=== PATIENT | male | born 1970 ===

== ENCOUNTER 2017-01-10 13:56 | Inpatient (IN) ==
--- NOTE | 2017-01-10 14:57 | General Surg History&Physical ---
Assessment and Plan - Time spent with patient Time spent with patient: Greater than 30 minutes (1) Traumatic hematoma of left thigh Status: Acute Assessment and plan: Impression: Mass of the left thigh poss due to hematoma Plan: CT scan and possible aspiration Current Visit: Yes History of Present Illness Chief complaint: mass or hematoma of the left thigh History of present illness: Mr. Marcos is a 46 year old male diabetic whom Dr. Vale referred due to concerns about persistent swelling and pain of the left thigh. He sustained trauma to the left thigh two months ago and over the past month has had increasing swelling and pain in the thigh. Dr. Vale was concerned about infection at this time. Ultasound demonstrated the area in the lower part of the left thigh but recent MRI was reported to be negative. The thigh is swollen and tender with good N-V function of the foot. Will admit for CT scan and possible drainage. Home Medications Medication Instructions Recorded Confirmed Type Sulfameth/Trimeth 400-80 Tab 1 tablet PO BID #14 tablet 12/31/16 Rx [Bactrim Tab] Allergies Allergy/AdvReac Type Severity Reaction Status Date / Time No Known Allergies Allergy Unverified 12/31/16 16:16 Medical,Surgical,& Family Hx - Medical History Cardio: History of: Hypertension - Surgical History Surgical History: noncontributory - Social History Smoking Status: Unknown if ever smoked Functional capacity: independent ambulation Exam - Constitutional General appearance: mild distress - Head Head exam: Present: normal inspection - ENT ENT exam: Present: normal exam - Neck Neck exam: Present: normal inspection - Respiratory Respiratory exam: Present: clear to auscultation bilaterally, rales - Cardiovascular Cardiovascular exam: Present: RRR - GI/Abdominal GI/Abdominal exam: Present: normal bowel sounds, soft - Extremities Exam Extremities exam: Present: other (Edema with some tenderness with fullness of the medial posterior aspect of the lower leg.) - Back Exam Back exam: Present: normal inspection - Neurological Exam Neurological exam: Present: alert, oriented X3, CN II-XII intact - Skin Skin exam: Present: normal color, warm, dry 12 point system: reviewed and no additional remarkable complaints except as stated Results - Diagnostic Findings Procedure: Ultrasound: report reviewed by me (Hematoma of the left thigh)
[2017-01-10] MEDS ORDERED: DEXTROSE 50% 25 GM/50 ML VIAL IV PRN ×2 (15:01→15:08)
[2017-01-10] MEDS ORDERED: GLUCAGON 1 MG VIAL IM PRN ×2 (15:01→15:08)
[2017-01-10] MEDS ORDERED: ACETAMINOPHEN 325 MG TABLET PO PRN (15:01)
[2017-01-10] MEDS ORDERED: ALUMINUM/MAGNES/SIMETH MAX STR 30 ML UDCUP PO PRN (15:01)
[2017-01-10] MEDS ORDERED: HYDROmorphone 2 MG/1 ML VIAL IV PRN (15:01)
[2017-01-10] MEDS ORDERED: ONDANSETRON 4 MG/2 ML VIAL IV PRN (15:01)
[2017-01-10 16:39] LABS: Basophils % 0.4 % (0.0-0.8); Eosinophils # 0.2 10*3/uL (0.0-0.87); Eosinophils % 1.7 % (0.00-10.9); Hematocrit 33.7 VOL% (42.0-52.0); Immature Granulocytes % 0.7 %; Immature Granulocytes Absolute 0.06 #; Lymphocytes % 10.8 % (21.2-54.2); Mean Corpuscular HGB Conc 35.6 GM/DL (32-36); Mean Corpuscular Hemoglobin 30 PG (27-34); Mean Corpuscular Volume 85.3 FL (87-102); Mean Platelet Volume 8.6 FL (9.6-12.0); Monocytes % 11.5 % (1.7-12.7); Neutrophils # 6.7 10*3/uL (1.4-7.4); Neutrophils % 74.9 % (38.7-73.9); Platelet Count 538 T/CUMM (130-400); Red Blood Count 3.95 MC/CUMM (3.8-5.5); Red Cell Distribution Width 11.4 % (9.3-17.3); White Blood Count 8.9 T/CUMM (4-12)
[2017-01-10] MEDS: INSULIN REGULAR 100 UNIT/ML SUBCUT SCH ×2 (16:42→21:17)
[2017-01-10 16:51] LABS: PT Patient Result 10.7 SECS; Partial Thromboplastin Time 34.9 SECS (0-40)
--- NOTE | 2017-01-10 17:06 | XRay Report ---
XR chest 2V Date: 01/10/2017 3:06 PM History: Hematoma left thigh Comparison: None Technique: PA and lateral chest Findings: The heart is normal in size. Atelectasis at the lung bases. Unremarkable mediastinum with degenerative changes. Impression: Minimal atelectasis at the lung bases. PROCEDURE INTERPRETED AT [facility] DEPARTMENT OF RADIOLOGY Final Report Signed by: Dr. Misa Aguirre
[2017-01-10 17:19] LABS: Alanine Aminotransferase 18 U/L (16-61); Albumin 2.2 G/DL (3.4-5.0); Alkaline Phosphatase 133 U/L (45-117); Aspartate Amino Transferase 15 U/L (0-37); Bilirubin,Total < 0.39 MG/DL (0.2-1.0); Blood Urea Nitrogen 18 MG/DL (7-18); Calcium 8.7 MG/DL (8.5-10.1); Glucose 154 MG/DL (74-106); Osmolality,Calculated 277.8 MOS/KG (273-304); Potassium 5.1 MMOL/L (3.5-5.1); Sodium 137 MMOL/L (136-145); Total Protein 6.6 G/DL (6.4-8.3)
[2017-01-10] MEDS: SODIUM CHLORIDE 0.45% 1,000 ML IV SCH (17:26)
[2017-01-10] MEDS: KETOROLAC 15 MG/1 ML VIAL IV SCH ×2 (17:26→21:17)
[2017-01-10] MEDS: PIPERACILLIN/TAZOBACTAM 3,375 MG in SODIUM CHLORIDE 0.9% 100 ML IV SCH (17:27)
--- NOTE | 2017-01-10 17:34 | CT Report ---
Referring physician: Dominik Lake EXAM: CT left thigh with contrast DATE: 01/10/2017 COMPARISON: None REASON: Pain and swelling in the left thigh TECHNIQUE: Axial images of the left thigh were obtained after administration of 100 cc of Omnipaque 350 IV contrast. Sagittal and coronal reformatted images were provided. Total DLP was 697.10 mGy*cm. FINDINGS:: No evidence of arterial stenosis. No fracture or dislocation. No periosteal thickening. 7 mm sclerotic findings in the left greater trochanter. Small knee joint effusion. Diffuse soft tissue edema. Inhomogeneous enhancement of the musculature especially within the edematous abductor ryne muscle. No well-circumscribed mass is identified. No abscess cavity noted. Enlarged left femoral nodes. IMPRESSION: Findings which can be seen with prominent myositis especially involving the left adductus ryne muscle. It is difficult to exclude possible developing compartment syndrome with associated soft tissue edema. Enlarged left femoral nodes with the largest measuring 22 mm in length. Small knee joint effusion. 7 mm benign bone island in the left greater trochanter. The CT exam was performed using one or more of the following dose reduction techniques: Automated exposure control and adjustment of the mA and/or kV according to patient size. PROCEDURE INTERPRETED AT [facility] DEPARTMENT OF RADIOLOGY Final Report Signed by: Dr. Misa Aguirre
[2017-01-10] MEDS: DOCUSATE SODIUM 100 MG CAPSULE PO SCH (21:17)
[2017-01-11] MEDS: PIPERACILLIN/TAZOBACTAM 3,375 MG in SODIUM CHLORIDE 0.9% 100 ML IV SCH ×4 (00:54→23:13)
[2017-01-11] MEDS: SODIUM CHLORIDE 0.45% 1,000 ML IV SCH ×4 (00:55→23:12)
[2017-01-11] MEDS: KETOROLAC 15 MG/1 ML VIAL IV SCH ×4 (04:20→20:42)
[2017-01-11 05:47] LABS: Basophils % 0.4 % (0.0-0.8); Eosinophils # 0.3 10*3/uL (0.0-0.87); Eosinophils % 4.1 % (0.00-10.9); Hematocrit 29.9 VOL% (42.0-52.0); Hemoglobin 10.4 GM/DL (14.0-18.0); Immature Granulocytes % 0.7 %; Immature Granulocytes Absolute 0.05 #; Lymphocytes # 1.2 10*3/uL (1.4-4.0); Lymphocytes % 16.1 % (21.2-54.2); Mean Corpuscular HGB Conc 34.8 GM/DL (32-36); Mean Corpuscular Hemoglobin 30 PG (27-34); Mean Corpuscular Volume 85.4 FL (87-102); Mean Platelet Volume 8.8 FL (9.6-12.0); Monocytes # 1.1 10*3/uL (0.11-0.8); Monocytes % 15.3 % (1.7-12.7); Neutrophils # 4.6 10*3/uL (1.4-7.4); Neutrophils % 63.4 % (38.7-73.9); Platelet Count 508 T/CUMM (130-400); Red Cell Distribution Width 11.6 % (9.3-17.3); White Blood Count 7.3 T/CUMM (4-12)
[2017-01-11 06:21] LABS: Calcium 8.4 MG/DL (8.5-10.1); Osmolality,Calculated 284.5 MOS/KG (273-304); Potassium 4.7 MMOL/L (3.5-5.1)
--- NOTE | 2017-01-11 07:52 | EKG Report ---
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
--- NOTE | 2017-01-11 08:09 | General Surgery Progress Note ---
Assessment and Plan - Time spent with patient Time spent with patient: Less than 30 minutes (1) Traumatic hematoma of left thigh Status: Acute Assessment and plan: 01/11/17 Left thigh swelling secondary to old trauma. CT suggests myositis rather than abscess. It does not have any characteristics of an advancing infection or compartment syndrome. He is on Zosyn and comfortable. We are awaiting Dr Hoffmann's opinion as to any additional tests that might benefit this man's diagnostic picture and his best course of treatment. Current Visit: Yes Subjective Patient reports: Present: no new complaints Exam - Constitutional Vitals: Period Temp Pulse Resp BP Sys/Cano Pulse Ox Last 24 Hr 97.9 F-98.3 F 83-91 16-18 136-158/85-99 96-99 General appearance: no acute distress - Respiratory Respiratory exam: Present: clear to auscultation bilaterally - Extremities Exam Extremities exam: Present: other (LUE without erythema; no other skin changes overnight. No fluctuance. Mass-effect is stable without unusual tenderness. No neurovascular signs. ) - Neurological Exam Neurological exam: Present: alert, oriented X3 Speech: Present: normal Results - Labs CBC & BMP: 01/11/17 05:25 01/11/17 05:25 Lab Results: I have reviewed the past 24 hour labs (No leukocytosis. CT suggests myositis with edema & lymphadenopathy, no abscess.) Quality Measures - VTE Contraindication to Pharmacological VTE Prophylaxis: High Risk of Bleeding
--- NOTE | 2017-01-11 09:39 | Infectious Disease Consult ---
Assessment and Plan (1) Myositis of left thigh Status: Acute Current Visit: Yes (2) Edema of left lower extremity Status: Acute Assessment and plan: Significant lymphedema of left lower extremity, with apparent myositis of left thigh muscles on CT scan. The patient has had no constitutional symptoms supportive of infection. I wonder if the edema is related to lymphatic obstruction may be in the pelvis. Alternatively this a condition called diabetic muscle infarction which results in painful swelling of the affected muscles and uncontrolled diabetic patients. Recommendations: 1. CT scan abdomen and pelvis to look for possible mass obstructing lymphatics on the left side 2. A1c 3. Blood cultures 2 sets 4. I would not treat with antibiotics at this time as I have low suspicion for infection Thank you very much for the consult. Will follow. Discussed with Dr. Lake. Current Visit: Yes History of Present Illness Chief complaint: Myositis History of present illness: Mr. Weaver is a 46 year old male who was well until about 2 months ago when he developed pain to the posterior aspect of the left thigh more distally. 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 The pain got steadily worse and then 2 weeks ago he started having swelling to the posterior aspect of the same thigh inferiorly. The swelling got worse and involve the entire thigh and also the leg. Patient developed worsening difficulty ambulating and so sought medical attention in the . He had an MRI done apparently showed fluid collection in the thigh suggestive of a hematoma. The patient did not tell me this but in speaking with Dr. Lake he was actually admitted to and given antibiotics for several days however there was no improvement in the swelling and so he was sent to our institution for further evaluation. The patient has not had any fever malaise or any other constitutional symptoms throughout all of this. He denies nausea vomiting diarrhea no cough shortness of breath no urinary symptoms. Does not have any significant family history. He is diabetic and admits that it is not controlled. I noticed the bruise to the medial aspect of his thigh inferiorly and he said that he bumped it on the patient differential he was moving several weeks ago. Home Medications Medication Instructions Recorded Confirmed Type Amlodipine Besylate [Amlodipine 10 mg PO BEDTIME 01/10/17 01/10/17 History Besylate] Aspirin [Ecotrin] 81 mg PO DAILY 01/10/17 01/10/17 History Carvedilol [Carvedilol] 3.125 mg PO BID 01/10/17 01/10/17 History Ergocalciferol [Drisdol] 50,000 unit PO Q7D 01/10/17 01/10/17 History Furosemide [Furosemide] 20 mg PO DAILY 01/10/17 01/10/17 History Hydralazine HCl [Hydralazine HCl] 50 mg PO Q8H 01/10/17 01/10/17 History Insulin Detemir [Levemir FlexPen] 50 units SUBCUT DAILY W/SUPPER 01/10/17 History Losartan [Cozaar] 50 mg PO DAILY 01/10/17 01/10/17 History Simvastatin [Simvastatin] 20 mg PO BEDTIME 01/10/17 01/10/17 History raNITIdine HCl [Ranitidine HCl] 150 mg PO BEDTIME 01/10/17 01/10/17 History Allergies Allergy/AdvReac Type Severity Reaction Status Date / Time No Known Allergies Allergy Unverified 12/31/16 16:16 12 point system: reviewed and no additional remarkable complaints except as stated (Per HPI) Medical,Surgical,& Family Hx - Medical History Cardio: History of: Hypertension Endocrine: History of: Diabetes Mellitus (NIDDM) - Family History Family History: Reports;: Family Cancer, Family Diabetes, Family Hypertension - Social History Smoking Status: Former smoker Frequency of Alcohol Use: Occasionally Type of Drug Use: None Infectious Disease Exam H&P - Constitutional Vitals: Vital Signs Temp Pulse Resp BP Pulse Ox 97.9 F 85 18 158/97 96 01/11/17 07:03 01/11/17 07:03 01/11/17 07:03 01/11/17 07:03 01/11/17 07:03 Intake and Output 01/10/17 01/11/17 01/11/17 23:59 07:59 15:59 Intake Total 440 / 440 1200 / 1200 Output Total 400 / 400 200 / 200 Balance 40 / 40 1000 / 1000 Intake: IV 100 / 100 1000 / 1000 Zosyn 3,375 mg In Ns 100 100 / 100 ml @ 25 mls/hr IV Q8H VICKEY Rx#:[id number] 1/2Ns 1,000 ml @ 125 mls/ 1000 / 1000 hr IV .Q8H VICKEY Rx#: [id number] Oral 340 / 340 200 / 200 Output: Urine 400 / 400 200 / 200 Other: Voiding Method Toilet Urinal Weight 72.064 kg Patient Weight 01/11/17 23:59 Weight 72.064 kg Exam: General: Patient relatively comfortable, nontoxic appearing HEENT: Mucous membranes pink and moist, anicteric acyanotic, KAYCEE, no oropharyngeal exudates Neck: Supple, no thyroid gland enlargement, no lymphadenopathy Respiratory system: Breath sounds vesicular, no crepitations or wheezes Cardiovascular: Normal S1 and S2, no murmurs appreciated Abdomen: Normal bowel sounds, soft nontender throughout, no organomegaly or mass Genitourinary: No suprapubic pain or bladder distention, clear urine from Wheeler catheter Extremities: Moderate to severe edema of the entire left lower extremity, there is no erythema of the skin, there is tenderness to the posterior aspect of the left thigh, lower half. He does not have any significant left inguinal lymphadenopathy. Skin: No rash, healing bruise to medial aspect of the left thigh inferiorly Reports - Labs CBC & BMP: 01/11/17 05:25 01/11/17 05:25 Labs: Laboratory Results - last 24 hr 01/10/17 01/10/17 01/10/17 16:18 16:31 16:31 WBC 8.9 RBC 3.95 Hgb 12.0 L Hct 33.7 L MCV 85.3 L MCH 30 MCHC 35.6 RDW 11.4 Plt Count 538 H MPV 8.6 L Neut % (Auto) 74.9 H Lymph % (Auto) 10.8 L [place] % (Auto) 11.5 Eos % (Auto) 1.7 Baso % (Auto) 0.4 Neut # (Auto) 6.7 Lymph # (Auto) 1.0 L [place] # (Auto) 1.0 H Eos # (Auto) 0.2 Baso # (Auto) 0.0 Immature Gran % 0.7 Nucleated RBC % 0.0 Immature Gran # 0.06 Nucleated RBCs # 0.00 INR 1.0 PT Patient/Control Mix 10.7 Circ Anticoag PTT 34.9 Sodium Potassium Chloride Carbon Dioxide Anion Gap BUN Creatinine GFR Calculation BUN/Creatinine Ratio Glucose POC Glucose 155 H Calculated Osmolality Calcium Total Bilirubin AST ALT Alkaline Phosphatase Total Protein Albumin Globulin Albumin/Globulin Ratio 01/10/17 01/10/17 01/11/17 16:31 20:31 05:25 WBC 7.3 RBC 3.50 L Hgb 10.4 L Hct 29.9 L MCV 85.4 L MCH 30 MCHC 34.8 RDW 11.6 Plt Count 508 H MPV 8.8 L Neut % (Auto) 63.4 Lymph % (Auto) 16.1 L [place] % (Auto) 15.3 H Eos % (Auto) 4.1 Baso % (Auto) 0.4 Neut # (Auto) 4.6 Lymph # (Auto) 1.2 L [place] # (Auto) 1.1 H Eos # (Auto) 0.3 Baso # (Auto) 0.0 Immature Gran % 0.7 Nucleated RBC % 0.0 Immature Gran # 0.05 Nucleated RBCs # 0.00 INR PT Patient/Control Mix Circ Anticoag PTT Sodium 137 Potassium 5.1 Chloride 102 Carbon Dioxide 31 Anion Gap 9.1 BUN 18 Creatinine 1.10 GFR Calculation 85 BUN/Creatinine Ratio 16.00 Glucose 154 H POC Glucose 204 H Calculated Osmolality 277.8 Calcium 8.7 Total Bilirubin < 0.39 AST 15 ALT 18 Alkaline Phosphatase 133 H Total Protein 6.6 Albumin 2.2 L Globulin 4.4 H Albumin/Globulin Ratio 0.5 L 01/11/17 01/11/17 05:25 06:51 WBC RBC Hgb Hct MCV MCH MCHC RDW Plt Count MPV Neut % (Auto) Lymph % (Auto) [place] % (Auto) Eos % (Auto) Baso % (Auto) Neut # (Auto) Lymph # (Auto) [place] # (Auto) Eos # (Auto) Baso # (Auto) Immature Gran % Nucleated RBC % Immature Gran # Nucleated RBCs # INR PT Patient/Control Mix Circ Anticoag PTT Sodium 139 Potassium 4.7 Chloride 106 Carbon Dioxide 27 Anion Gap 10.7 BUN 20 H Creatinine 1.10 GFR Calculation 85 BUN/Creatinine Ratio 18.00 Glucose 196 H POC Glucose 187 H Calculated Osmolality 284.5 Calcium 8.4 L Total Bilirubin AST ALT Alkaline Phosphatase Total Protein Albumin Globulin Albumin/Globulin Ratio - Diagnostic Findings Procedure: CT: report reviewed by me (CT findings of the left thigh reviewed with diffuse edema and myositis)
[2017-01-11] MEDS: DOCUSATE SODIUM 100 MG CAPSULE PO SCH ×2 (09:44→20:42)
[2017-01-11] MEDS: PANTOPRAZOLE 40 MG TABLET PO SCH (09:44)
[2017-01-11] MEDS: INSULIN REGULAR 100 UNIT/ML SUBCUT SCH ×4 (09:45→20:42)
--- NOTE | 2017-01-11 11:16 | CT Report ---
CT abdomen pelvis w con Indication: Possible mass obstructing lymphatics in the left pelvis Comparison: CT left leg dated January 10, 2017 Technique: Multiple axial tomographic images of the abdomen and pelvis were obtained after the administration of 100 cc Omnipaque 350 intravenous contrast. Findings: Mild dependent change of the lungs present. No worrisome focal hepatic abnormality. The gallbladder is grossly unremarkable. The pancreas is grossly unremarkable. The spleen is grossly unremarkable. The bilateral adrenal glands are grossly unremarkable. 2.8 cm left renal cyst. No evidence of hydronephrosis. The urinary bladder is incompletely distended. Prostate is somewhat prominent and demonstrates coarse calcification. There is no evidence of gastrointestinal obstruction or acute appendicitis. Moderate fecal material throughout colon may reflect constipation. Mild atherosclerotic calcifications demonstrated. Significant edema noted throughout the visualized left thigh. Bilateral pars defects at L5 with grade 1 anterolisthesis of L5 upon S1. IMPRESSION: Significant edema noted throughout the visualized left thigh. Prominent prostate. Moderate amount of fecal material throughout the colon may reflect constipation. Detailed findings as above. The CT exam was performed using one or more of the following dose reduction techniques: Automated exposure control, adjustment of the mA and/or kV according to patient size, or use of iterative reconstruction technique. PROCEDURE INTERPRETED AT [facility] DEPARTMENT OF RADIOLOGY Final Report Signed by: Dr Richmond English
[2017-01-11] MEDS: CARVEDILOL 3.125 MG TABLET PO SCH ×2 (13:56→20:42)
[2017-01-11] MEDS: LOSARTAN 50 MG TABLET PO SCH (13:56)
[2017-01-11] MEDS: amLODIPine 10 MG TABLET PO SCH (20:42)
[2017-01-12] MEDS: KETOROLAC 15 MG/1 ML VIAL IV SCH ×4 (02:32→21:08)
[2017-01-12] MEDS: SODIUM CHLORIDE 0.45% 1,000 ML IV SCH ×2 (07:45→15:40)
[2017-01-12] MEDS: PANTOPRAZOLE 40 MG TABLET PO SCH (08:08)
[2017-01-12] MEDS: LOSARTAN 50 MG TABLET PO SCH (08:09)
[2017-01-12] MEDS: DOCUSATE SODIUM 100 MG CAPSULE PO SCH ×2 (08:09→20:52)
[2017-01-12] MEDS: CARVEDILOL 3.125 MG TABLET PO SCH ×2 (08:10→20:52)
[2017-01-12] MEDS: INSULIN REGULAR 100 UNIT/ML SUBCUT SCH ×4 (08:10→20:53)
[2017-01-12] MEDS: PIPERACILLIN/TAZOBACTAM 3,375 MG in SODIUM CHLORIDE 0.9% 100 ML IV SCH ×3 (08:12→22:55)
--- NOTE | 2017-01-12 09:02 | General Surgery Progress Note ---
Assessment and Plan - Time spent with patient Time spent with patient: Less than 30 minutes (1) Traumatic hematoma of left thigh Status: Acute Assessment and plan: 01/11/17 Left thigh swelling secondary to old trauma. CT suggests myositis rather than abscess. It does not have any characteristics of an advancing infection or compartment syndrome. He is on Zosyn and comfortable. We are awaiting Dr Hoffmann's opinion as to any additional tests that might benefit this man's diagnostic picture and his best course of treatment. 01/12/2017. Thigh appears to be slightly improved symptomatically. There does not appear to be any advancing infection, and Dr. Hoffmann's opinion is that this is not infectious process. We will await her reassessment this morning, but at this point it does not appear to be progressing, does not seem to be an abscess or anything that would benefit from a surgical procedure/invasion. We may complete his short course of antibiotics and plan for discharge with close follow-up and just encourage him to conservatively be active and wait to see if the area continues to resolve with just medical management of diabetes, steroids and close observation. Of note, his antihypertensives have been re- started, and his blood pressures are slowly returning to a normal range. Current Visit: Yes Subjective Patient reports: Present: pain is less, tolerating a regular diet. Absent: shortness of breath Exam - Constitutional Vitals: Period Temp Pulse Resp BP Sys/Cano Pulse Ox Last 24 Hr 97.5 F-99.1 F 81-93 18-20 130-180/80-111 96-100 General appearance: no acute distress - Extremities Exam Extremities exam: Present: other (Left thigh continues to be moderately tender on the medial aspect. There is no advancing erythema, no increased swelling, no fluctuance or stranding. He says that he believes the discomfort is slightly better.) Results - Labs CBC & BMP: 01/11/17 05:25 01/11/17 05:25 Lab Results: I have reviewed the past 24 hour labs (CT and Dr. Hoffmann's note have been reviewed and are appreciated.) Quality Measures - VTE Contraindication to Pharmacological VTE Prophylaxis: High Risk of Bleeding
--- NOTE | 2017-01-12 11:34 | Infectious Disease Progress ---
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 This is a microangiopathic complication of diabetes. Recommendations: 1. Discontinue antibiotics 2. Anti-inflammatory medication to help with the pain 3. I can see the office the patient in the office in about 2-4 weeks time to ensure that there is no need for antibiotics The muscle swelling/inflammation of diabetic muscle infarction can take up to 4 months to resolve. Current Visit: Yes Infectious Disease - PN: Subj Interval history: Patient says the swelling to the left thigh and leg is a little better today, he still without fever and other constitutional symptoms. Infectious Disease Exam (PN) - Constitutional Vitals: Temp Pulse Resp BP Pulse Ox 98.1 F 82 20 137/94 100 01/12/17 10:58 01/12/17 10:58 01/12/17 10:58 01/12/17 10:58 01/12/17 10:58 General appearance: no acute distress Exam: General appearance: no acute distress - Eye Eye exam: Present: EOMI. no icterus Pupils: Present: KAYCEE - ENT ENT exam: no oropharyhgeal exudates - Respiratory Respiratory exam: vesicular BS, no crepitations or wheezes - Cardiovascular Cardiovascular exam: regular rate and rhythm, no murmurs - GI/Abdominal GI/Abdominal exam: normal bowel sounds, soft, non-tender, no organomegaly or mass - Extremities Exam Extremities exam: Still with diffuse edema to left thigh and leg, the edema is more firm to the posterior aspect of the thigh inferiorly, no hyperemia or erythema noted - Skin Skin exam: no rash Results - Labs CBC & BMP: 01/11/17 05:25 01/11/17 05:25 Lab Results: I have reviewed the past 24 hour labs Quality Measures - VTE Contraindication to Pharmacological VTE Prophylaxis: High Risk of Bleeding
[2017-01-12] MEDS: amLODIPine 10 MG TABLET PO SCH (20:52)
[2017-01-13] MEDS: SODIUM CHLORIDE 0.45% 1,000 ML IV SCH ×2 (01:32→06:36)
[2017-01-13] MEDS: KETOROLAC 15 MG/1 ML VIAL IV SCH ×2 (02:51→09:07)
--- NOTE | 2017-01-13 08:37 | Discharge Summary ---
Hospital Course - Hospital Course Hospital Course: Discharge summary 01/13/2017. Diagnosis 1. Swelling of the left thigh with myositis and groin lymphadenopathy in a patient with history of remote trauma. Differential includes spontaneous diabetic muscle infarction secondary to microangiopathy of diabetes 2. Diabetes mellitus type 2, uncontrolled 3. Hypertension, poorly controlled and with questionable degree of compliance Brief summary-this 46-year-old male was referred by Dr. Vale [facility] after he presented with worsening left thigh pain that had become intractable and had made it difficult for him to ambulate at home and function at his job. It was felt that he might have an abscess in the area although he had no open wound. He originally was seen in the clinic with swelling and tenderness and an ultrasound was obtained of the left thigh, which showed soft tissue swelling. There was subtle redness in the area, and she became concerned about infection. He was placed on antibiotics and Dr. Lake was consulted. There was some swelling of the thigh, and it was difficult to determine whether there was an infectious process or the swelling was secondary to an injury he sustained approximately 2 months prior. He was seen in our office, and Dr. Lake did feel that a CT was needed, along with a high degree of suspicion that this area was an abscess. He was admitted, placed on IV Zosyn, and labs & CT of the left thigh was obtained. Infectious diseases consult was also ordered his labs were not unusually abnormal, with no elevated WBC, and the CT did not show a deep abscess. Rather there was soft tissue edema and enlarged left femoral lymph nodes, but the area of the left thigh showed only myositis. ESR was 117, CRP 7.82, alkaline phosphatase 133, and creatine kinase 380. His hemoglobin A1c was elevated at 9.2, and his glucoses throughout admission were in the 150-[address] Majo Hoffmann was consulted, and she felt that the area did not show any evidence of infection as well. She felt that this represents diabetic muscle infarction, a micro-angiopathy complication of type 2 diabetes. She does not recommend antibiotics for this area, and in fact feels that antibiotics may be detrimental rather than helpful in this situation. Blood cultures have been negative. He has remained hypertensive though asymptomatic throughout the admission, but restarting his home medications have brought this into a more normal range. He has been able to ambulate with physical therapy, although he is much more stable now using a cane for assistance in ambulating. He says that symptomatically his pain is somewhat better, and his left thigh has clinically remained stable throughout the admission. There has been no evidence of advancing erythema or edema, no evidence of any ischemic change, and no neurovascular compromise. His vital signs and labs have been stable as noted above. With Dr. Loo's opinion being such that this is a microangiopathic complication of diabetes and not a true infectious process, and with him clinically being somewhat improved symptomatically with nothing to suggest an advancing infection and certainly nothing that would benefit from surgical drainage, we feel it best to continue with conservative management of this area. Of note it may be a slow process and he would be best served by conservative treatment with good overall disease management, mild anti-inflammatories, and good support of the area to prevent further injury or falls. If he fails to improve, Dr. Hoffmann does recommend that we investigate further the groin lymphadenopathy with a CT of the abdomen and pelvis. We will plan to follow him up in 2-4 weeks in our office, hopefully in conjunction with her 2-4 week follow-up visit. We will also recommend that he see Dr. Vale at [facility] for routine medical management in that interval. We will plan to leave him with a 4 mg Medrol Dosepak to take on discharge as well as resuming all his home medications. Will recommend just mild [id number] medications for pain, and will get him a standard cane for use at home. Physical therapy has instructed him on this use, and he seems to be much more stable and comfortable when ambulating with cane. We discussed this in detail with the patient he seems to have a good understanding of this process, the need for close follow-up and compliance , and of the need to notify us should he have changes before his scheduled appointment. - Time spent with patient Time with patient DS: Greater than 30 minutes Diagnosis - Discharge Diagnosis (1) Traumatic hematoma of left thigh Status: Acute (2) Myositis of left thigh Status: Acute (3) Diabetic muscle infarction Status: Acute (4) Diabetes type 2, uncontrolled Status: Acute Specialty Discharge - Follow Up or Referrals Follow up with: Majo Cervantes MD [Physician] - 02/01/17 9:00 am Dominik Lake MD [Physician] - (Appointment to see Dr. Lake or Brii and 2-4 weeks. Please try to schedule on the same day as Dr. Hoffmann's appointment if possible) Discharge Plan - Discharge Data Disposition: Disch To Home/Self Care Condition at Discharge: Stable Discharge Diet: diabetic diet Activity: increase activity as tolerated, other (Use cane for ambulation) Hygiene: no restrictions Weight Bearing at Discharge: weight bear as tolerated, other (Use cane for ambulation) Contact your physician if you experience:: fever over 101, Redness or swelling, Shortness of breath, pain uncontrolled by pain medications - Discharge Medications New methylPREDNISolone DOSEPAK [Medrol Dosepak] 4 mg PO DIRECTED #1 pack Continue Amlodipine Besylate 10 mg PO BEDTIME Hydralazine HCl 50 mg PO Q8H Carvedilol 3.125 mg PO BID raNITIdine HCl [Ranitidine HCl] 150 mg PO BEDTIME Simvastatin 20 mg PO BEDTIME Furosemide 20 mg PO DAILY Aspirin [Ecotrin] 81 mg PO DAILY Losartan [Cozaar] 50 mg PO DAILY Insulin Detemir [Levemir FlexPen] 50 units SUBCUT DAILY W/SUPPER Ergocalciferol [Drisdol] 50,000 unit PO Q7D - Follow Up or Referral Follow Up: Majo Cervantes MD [Physician] - 02/01/17 9:00 am - Forms/Instructions Additional Discharge Instructions: Work excuse until after his appointment with Dr Lake. Exam - Constitutional Vitals: Period Temp Pulse Resp BP Sys/Cano Pulse Ox Last 24 Hr 98.0 F-98.9 F 82-87 18-20 137-171/94-99 99-100 General appearance: normal weight, no acute distress - Head Head exam: Present: normocephalic - Eye Eye exam: Absent: nystagmus, periorbital swelling, scleral icterus Pupils: Present: normal accommodation - Neck Neck exam: Absent: lymphadenopathy - Respiratory Respiratory exam: Absent: rales, rhonchi, wheezes - Cardiovascular Cardiovascular exam: Present: regular rate and rhythm - GI/Abdominal GI/Abdominal exam: Present: soft. Absent: tenderness - Extremities Exam Extremities exam: Present: other (Left thigh without redness. Induration is stable. There is no fluctuance, no increased tenderness, no increased edema. Neurovascular function remains intact.) - Neurological Exam Neurological exam: Present: alert, oriented X3 Discharge Results Procedures and tests throughout hospitalization: Pending Orders 01/11/17 08:36 Blood Culture Stat Labs on day of discharge: Labs from last 24 hours 01/12/17 01/12/17 11:44 11:44 ESR Westergren 117 H Total Creatine Kinase 380 H C-Reactive Protein 7.82 H Preliminary micro results at discharge 01/11/17 08:36 Blood Culture - Preliminary Blood No growth at 1 day 01/11/17 08:36 Blood Culture - Preliminary Blood No growth at 1 day DS: Provider Date of admission: 01/10/17 14:22 Primary care physician: Kashif Marin MD Attending physician on admission: Dominik Lake MD Consults: 01/10/17 15:06 Consult to Physical Therapy [CONS] Routine Reason for Physical Therapy: Weakness Start Therapy: Tomorrow Consult Comment: ambulate BID 01/10/17 16:05 Consult to Dietitian [CONS] Routine Reason for Dietitian: Dietary Consult 01/11/17 07:12 Consult to Physician [CONS] Routine Comment: Pt with myositis please evaluate for treatment Consulting Provider: Majo Cervantes Consulting Provider Notified: Yes When should Consulting Provider be notified: Now Person Notified: arnold garibay Date Notified: 01/11/17 Time Notified: 10:34 Discharging clinician: Brii Villar CNP, R
[2017-01-13] MEDS: INSULIN REGULAR 100 UNIT/ML SUBCUT SCH (09:06)
[2017-01-13] MEDS: PIPERACILLIN/TAZOBACTAM 3,375 MG in SODIUM CHLORIDE 0.9% 100 ML IV SCH (09:06)
[2017-01-13] MEDS: PANTOPRAZOLE 40 MG TABLET PO SCH (09:07)
[2017-01-13] MEDS: LOSARTAN 50 MG TABLET PO SCH (09:07)
[2017-01-13] MEDS: CARVEDILOL 3.125 MG TABLET PO SCH (09:07)
[2017-01-13] MEDS: DOCUSATE SODIUM 100 MG CAPSULE PO SCH (09:07)
[2017-01-13 11:26] VITALS: BP 154/90
== END 2017-01-13 12:15 | disposition home or self-care (01) | DRG 301 ==
LOC: N.3E → OBSVTOIN 14:22
PROVIDERS: ADMIT Specialist; ATTEND Specialist

== ENCOUNTER 2017-05-04 18:45 | Inpatient (IN) ==
[2017-05-04] MEDS ORDERED: METOCLOPRAMIDE 10 MG/2 ML VIAL IV STA (19:07)
[2017-05-04] MEDS ORDERED: ONDANSETRON 4 MG/2 ML VIAL IV STA (19:07)
[2017-05-04] MEDS ORDERED: metroNIDAZOLE INJ 500 MG in PREMIX 1 EACH IV STA (19:13)
[2017-05-04] MEDS ORDERED: hydrALAZINE 20 MG/1 ML VIAL IV STA (19:14)
[2017-05-04] MEDS ORDERED: METOCLOPRAMIDE 10 MG/2 ML VIAL ONE (19:30)
[2017-05-04] MEDS ORDERED: metroNIDAZOLE 500 MG/100 ML PREMIX IV ONE (19:30)
[2017-05-04] MEDS ORDERED: ONDANSETRON 4 MG/2 ML VIAL ONE (19:30)
[2017-05-04] MEDS ORDERED: hydrALAZINE 20 MG/1 ML VIAL ONE (19:30)
[2017-05-04 20:59] LABS: Basophils % 0.2 % (0.0-0.8); Eosinophils # 0.2 10*3/uL (0.0-0.87); Eosinophils % 2.2 % (0.00-10.9); Hematocrit 33.5 VOL% (42.0-52.0); Hemoglobin 11.9 GM/DL (14.0-18.0); Immature Granulocytes % 0.3 %; Immature Granulocytes Absolute 0.03 #; Lymphocytes % 11.1 % (21.2-54.2); Mean Corpuscular HGB Conc 35.5 GM/DL (32-36); Mean Corpuscular Hemoglobin 31 PG (27-34); Mean Corpuscular Volume 85.9 FL (87-102); Mean Platelet Volume 9.4 FL (9.6-12.0); Monocytes # 0.6 10*3/uL (0.11-0.8); Monocytes % 6.6 % (1.7-12.7); Neutrophils % 79.6 % (38.7-73.9); Platelet Count 249 T/CUMM (130-400); Red Cell Distribution Width 13.3 % (9.3-17.3); White Blood Count 8.7 T/CUMM (4-12)
[2017-05-04 21:25] LABS: Lactic Acid 0.6 MMOL/L (0.4-2.0)
[2017-05-04 21:37] LABS: CKMB % 3.5 %; Calcium 8.1 MG/DL (8.5-10.1); Osmolality,Calculated 291.7 MOS/KG (273-304); Potassium 3.6 MMOL/L (3.5-5.1); Troponin I Only 0.457 NG/ML (0.00-0.045)
[2017-05-04] MEDS ORDERED: ONDANSETRON 4 MG/2 ML VIAL IV PRN (23:06)
[2017-05-04] MEDS ORDERED: ACETAMINOPHEN 325 MG TABLET PO PRN (23:06)
[2017-05-04] MEDS ORDERED: GLUCAGON 1 MG VIAL IM PRN (23:16)
[2017-05-04] MEDS ORDERED: DEXTROSE 50% 25 GM/50 ML VIAL IV PRN (23:16)
[2017-05-05] MEDS ORDERED: LEVOFLOXACIN INJ 100 ML IV ONE (01:18)
[2017-05-05] MEDS: LEVOFLOXACIN INJ 500 MG in PREMIX 1 EACH IV SCH (01:25)
[2017-05-05] MEDS: SODIUM CHLORIDE 0.9% 1,000 ML IV SCH ×3 (02:30→12:50)
[2017-05-05] MEDS ORDERED: metroNIDAZOLE 500 MG/100 ML PREMIX IV ONE ×2 (04:27→13:30)
[2017-05-05 05:14] LABS: Basophils % 0.3 % (0.0-0.8); Eosinophils # 0.2 10*3/uL (0.0-0.87); Eosinophils % 2.4 % (0.00-10.9); Hematocrit 33.8 VOL% (42.0-52.0); Hemoglobin 11.8 GM/DL (14.0-18.0); Immature Granulocytes % 0.3 %; Immature Granulocytes Absolute 0.03 #; Lymphocytes # 0.8 10*3/uL (1.4-4.0); Lymphocytes % 8.8 % (21.2-54.2); Mean Corpuscular HGB Conc 34.9 GM/DL (32-36); Mean Corpuscular Hemoglobin 30 PG (27-34); Mean Corpuscular Volume 86.2 FL (87-102); Mean Platelet Volume 9.9 FL (9.6-12.0); Monocytes # 0.5 10*3/uL (0.11-0.8); Monocytes % 5.6 % (1.7-12.7); Neutrophils # 7.3 10*3/uL (1.4-7.4); Neutrophils % 82.6 % (38.7-73.9); Platelet Count 259 T/CUMM (130-400); Red Blood Count 3.92 MC/CUMM (3.8-5.5); Red Cell Distribution Width 13.7 % (9.3-17.3); White Blood Count 8.8 T/CUMM (4-12)
[2017-05-05] MEDS: metroNIDAZOLE INJ 500 MG in PREMIX 1 EACH IV SCH ×3 (05:14→21:19)
[2017-05-05 05:42] LABS: Albumin 2.3 G/DL (3.4-5.0); Bilirubin,Total 0.9 MG/DL (0.2-1.0); Calcium 8.1 MG/DL (8.5-10.1); Osmolality,Calculated 292.6 MOS/KG (273-304); Potassium 3.6 MMOL/L (3.5-5.1); Risk Ratio 4.29; Total Protein 6.2 G/DL (6.4-8.3); VLDL CHOLESTEROL 17.4 MG/DL
[2017-05-05] MEDS ORDERED: METOPROLOL SUCCINATE XL 25 MG TABLET PO ONE (07:29)
[2017-05-05] MEDS ORDERED: METOPROLOL TARTRATE 25 MG TABLET ONE (07:33)
[2017-05-05] MEDS: hydrALAZINE 25 MG TABLET PO SCH ×4 (07:49→21:18)
[2017-05-05] MEDS: INSULIN REGULAR 100 UNIT/ML SUBCUT SCH ×4 (07:51→21:20)
[2017-05-05] MEDS ORDERED: ENOXAPARIN 40 MG/0.4 ML SYRINGE ONE (08:32)
[2017-05-05] MEDS ORDERED: ASPIRIN CHEW 81 MG TABLET PO ONE (08:32)
[2017-05-05] MEDS ORDERED: LISINOPRIL 10 MG TABLET ONE (08:33)
[2017-05-05] MEDS ORDERED: PANTOPRAZOLE 40 MG TABLET PO ONE (08:33)
[2017-05-05] MEDS: ENOXAPARIN 40 MG/0.4 ML SYRINGE SUBCUT SCH (08:51)
[2017-05-05] MEDS: PANTOPRAZOLE 40 MG TABLET PO SCH (08:52)
[2017-05-05] MEDS: LISINOPRIL 20 MG TABLET PO SCH ×2 (08:54→21:18)
[2017-05-05] MEDS: ASPIRIN EC 81 MG TABLET PO SCH (08:57)
[2017-05-05] MEDS ORDERED: hydrALAZINE 25 MG TABLET PO SCH ×2 (09:00)
[2017-05-05] MEDS ORDERED: METOPROLOL SUCCINATE XL 25 MG TABLET PO SCH ×2 (09:00→21:00)
[2017-05-05 12:31] LABS: CKMB % 4.1 %
[2017-05-05 12:34] LABS: Troponin I Only 0.496 NG/ML (0.00-0.045)
[2017-05-05 16:56] LABS: CKMB % 4.5 %
[2017-05-05 16:58] LABS: Troponin I Only 0.479 NG/ML (0.00-0.045)
[2017-05-05] MEDS ORDERED: DOXAZOSIN 2 MG TABLET PO SCH (21:00)
[2017-05-05] MEDS: METOPROLOL SUCCINATE XL 25 MG TABLET PO SCH (21:16)
[2017-05-05] MEDS: GABAPENTIN 100 MG CAPSULE PO SCH (21:17)
[2017-05-05] MEDS: DOXAZOSIN 4 MG TABLET PO SCH (21:17)
[2017-05-05 23:01] LABS: CKMB % 4.3 %
[2017-05-05 23:05] LABS: Troponin I Only 0.462 NG/ML (0.00-0.045)
[2017-05-06] MEDS: LEVOFLOXACIN INJ 500 MG in PREMIX 1 EACH IV SCH (00:37)
[2017-05-06] MEDS: metroNIDAZOLE INJ 500 MG in PREMIX 1 EACH IV SCH ×3 (04:44→21:30)
[2017-05-06 05:40] LABS: Basophils % 0.5 % (0.0-0.8); Eosinophils # 0.2 10*3/uL (0.0-0.87); Eosinophils % 3.8 % (0.00-10.9); Hemoglobin 10.2 GM/DL (14.0-18.0); Immature Granulocytes % 0.2 %; Immature Granulocytes Absolute 0.01 #; Lymphocytes # 1.5 10*3/uL (1.4-4.0); Lymphocytes % 26.5 % (21.2-54.2); Mean Corpuscular HGB Conc 35.2 GM/DL (32-36); Mean Corpuscular Hemoglobin 30 PG (27-34); Mean Corpuscular Volume 84.8 FL (87-102); Mean Platelet Volume 9.7 FL (9.6-12.0); Monocytes # 0.5 10*3/uL (0.11-0.8); Monocytes % 9.4 % (1.7-12.7); Neutrophils # 3.3 10*3/uL (1.4-7.4); Neutrophils % 59.6 % (38.7-73.9); Platelet Count 238 T/CUMM (130-400); Red Blood Count 3.42 MC/CUMM (3.8-5.5); Red Cell Distribution Width 13.3 % (9.3-17.3); White Blood Count 5.5 T/CUMM (4-12)
[2017-05-06 06:03] LABS: Calcium 7.9 MG/DL (8.5-10.1); Potassium 3.5 MMOL/L (3.5-5.1)
[2017-05-06 06:43] LABS: Eosinophils 1 % (0-10); Lymphocytes 21 % (20-55); Segmented Neutrophils 73 % (50-85); Total Cells Counted 100
[2017-05-06 06:44] LABS: Burr Cells Slight; Hypochromasia Slight; Platelet Estimate Adequate
[2017-05-06] MEDS: INSULIN REGULAR 100 UNIT/ML SUBCUT SCH ×4 (08:35→21:36)
[2017-05-06] MEDS ORDERED: METOPROLOL SUCCINATE XL 25 MG TABLET PO SCH (09:00)
[2017-05-06] MEDS: ASPIRIN EC 81 MG TABLET PO SCH (09:13)
[2017-05-06] MEDS: LISINOPRIL 20 MG TABLET PO SCH ×2 (09:13→21:32)
[2017-05-06] MEDS: METOPROLOL SUCCINATE XL 25 MG TABLET PO SCH ×2 (09:13→21:32)
[2017-05-06] MEDS: hydrALAZINE 25 MG TABLET PO SCH ×3 (09:14→21:33)
[2017-05-06] MEDS: ENOXAPARIN 40 MG/0.4 ML SYRINGE SUBCUT SCH (09:14)
[2017-05-06] MEDS: PANTOPRAZOLE 40 MG TABLET PO SCH (09:14)
[2017-05-06] MEDS: SODIUM CHLORIDE 0.9% 1,000 ML IV SCH (13:07)
[2017-05-06] MEDS ORDERED: PRAVASTATIN 20 MG TABLET PO SCH (21:00)
[2017-05-06] MEDS: DOXAZOSIN 4 MG TABLET PO SCH (21:32)
[2017-05-06] MEDS: GABAPENTIN 100 MG CAPSULE PO SCH (21:33)
[2017-05-07] MEDS ORDERED: cloNIDine 0.1 MG TABLET PO PRN (00:24)
[2017-05-07] MEDS: LEVOFLOXACIN INJ 500 MG in PREMIX 1 EACH IV SCH (00:37)
[2017-05-07] MEDS: SODIUM CHLORIDE 0.9% 1,000 ML IV SCH (02:06)
[2017-05-07 03:10] LABS: Basophils % 0.2 % (0.0-0.8); Eosinophils # 0.1 10*3/uL (0.0-0.87); Eosinophils % 2.4 % (0.00-10.9); Hematocrit 30.1 VOL% (42.0-52.0); Hemoglobin 10.5 GM/DL (14.0-18.0); Immature Granulocytes % 0.2 %; Immature Granulocytes Absolute 0.01 #; Lymphocytes # 1.7 10*3/uL (1.4-4.0); Lymphocytes % 29.3 % (21.2-54.2); Mean Corpuscular HGB Conc 34.9 GM/DL (32-36); Mean Corpuscular Hemoglobin 30 PG (27-34); Mean Corpuscular Volume 85.8 FL (87-102); Mean Platelet Volume 9.3 FL (9.6-12.0); Monocytes # 0.6 10*3/uL (0.11-0.8); Monocytes % 9.4 % (1.7-12.7); Neutrophils # 3.4 10*3/uL (1.4-7.4); Neutrophils % 58.5 % (38.7-73.9); Platelet Count 224 T/CUMM (130-400); Red Blood Count 3.51 MC/CUMM (3.8-5.5); Red Cell Distribution Width 13.4 % (9.3-17.3); White Blood Count 5.9 T/CUMM (4-12)
[2017-05-07 04:15] LABS: Potassium 3.4 MMOL/L (3.5-5.1)
[2017-05-07] MEDS: metroNIDAZOLE INJ 500 MG in PREMIX 1 EACH IV SCH (05:07)
[2017-05-07 05:30] LABS: Burr Cells Slight; Giant Platelets Few; Hypochromasia 1+; Ovalocytes Slight; Platelet Estimate Adequate
[2017-05-07] MEDS: hydrALAZINE 25 MG TABLET PO SCH (08:15)
[2017-05-07] MEDS: LISINOPRIL 20 MG TABLET PO SCH (08:15)
[2017-05-07] MEDS: ASPIRIN EC 81 MG TABLET PO SCH (08:15)
[2017-05-07] MEDS: ENOXAPARIN 40 MG/0.4 ML SYRINGE SUBCUT SCH (08:16)
[2017-05-07] MEDS: PANTOPRAZOLE 40 MG TABLET PO SCH (08:16)
[2017-05-07] MEDS: METOPROLOL SUCCINATE XL 25 MG TABLET PO SCH (08:18)
[2017-05-07] MEDS: INSULIN REGULAR 100 UNIT/ML SUBCUT SCH (08:22)
[2017-05-07] MEDS ORDERED: POTASSIUM CHLORIDE 20 MEQ TABLET PO PRN (08:33)
[2017-05-07 12:31] VITALS: BP 161/95
== END 2017-05-07 12:41 | disposition home or self-care (01) | DRG 392 ==
LOC: EDUNIT# → EDBD → N.ED 18:45 → N.EDINP 18:45 → OBSVTOIN 22:18 → N.TELEN 05-05 13:26
PROVIDERS: ADMIT Internal Medicine Geriatric Medicine; ATTEND Internal Medicine Geriatric Medicine

== ENCOUNTER 2018-03-03 12:24 | Inpatient (IN) ==
[2018-03-11 11:06] VITALS: BP 157/102
== END 2018-03-11 12:08 | disposition home or self-care (01) | DRG 565 ==
LOC: N.ED 12:24 → N.EDINP 18:37 → SUATTDRO 18:38 → N.2E 19:58
PROVIDERS: ADMIT Internal Medicine; ATTEND Internal Medicine

== ENCOUNTER 2018-10-10 14:41 | Inpatient (IN) ==
[2018-10-10] MEDS ORDERED: DEXTROSE 50% 25 GM/50 ML VIAL IV PRN (18:34)
[2018-10-10] MEDS ORDERED: GLUCAGON 1 MG VIAL IM PRN (18:34)
[2018-10-10] MEDS ORDERED: ACETAMINOPHEN 325 MG TABLET PO PRN (18:34)
[2018-10-10] MEDS ORDERED: ONDANSETRON 4 MG/2 ML VIAL IV PRN (18:34)
[2018-10-10] MEDS ORDERED: POTASSIUM CHLORIDE 20 MEQ TABLET PO ONE (18:44)
[2018-10-10] MEDS: hydrALAZINE 25 MG TABLET PO SCH (20:24)
[2018-10-10] MEDS: INSULIN REGULAR 100 UNIT/ML SUBCUT SCH (20:24)
[2018-10-10] MEDS ORDERED: LISINOPRIL 10 MG TABLET PO SCH (21:00)
[2018-10-11 06:07] LABS: Basophils % 0.6 % (0.0-0.8); Eosinophils # 0.3 10*3/uL (0.0-0.87); Eosinophils % 4.4 % (0.00-10.9); Hematocrit 22.4 VOL% (42.0-52.0); Hemoglobin 7.1 GM/DL (14.0-18.0); Immature Granulocytes % 0.4 %; Immature Granulocytes Absolute 0.03 #; Lymphocytes # 1.3 10*3/uL (1.4-4.0); Lymphocytes % 18.2 % (21.2-54.2); Mean Corpuscular HGB Conc 31.7 GM/DL (32-36); Mean Corpuscular Hemoglobin 29 PG (27-34); Mean Corpuscular Volume 92.6 FL (87-102); Mean Platelet Volume 10.3 FL (9.6-12.0); Monocytes # 0.6 10*3/uL (0.11-0.8); Monocytes % 8.5 % (1.7-12.7); Neutrophils # 4.8 10*3/uL (1.4-7.4); Neutrophils % 67.9 % (38.7-73.9); Platelet Count 245 T/CUMM (130-400); Red Blood Count 2.42 MC/CUMM (3.8-5.5); White Blood Count 7.1 T/CUMM (4-12)
[2018-10-11 06:18] LABS: INR 0.9; PT Patient Result 10.1 SECS; Partial Thromboplastin Time 28.7 SECS (0-40)
[2018-10-11 06:34] LABS: Calcium 5.9 MG/DL (8.5-10.1); Osmolality,Calculated 316.1 MOS/KG (273-304)
[2018-10-11 07:27] LABS: Hepatitis A Ab IgM Quant 0.19 Index; Hepatitis A Ab IgM Result Negative (Negative); Hepatitis B Core IgM Quant 0.12 Index; Hepatitis B Core IgM Result Negative (Negative); Hepatitis B Surface Ag Quant < 0.10 Index; Hepatitis B Surface Ag Result Negative (Negative); Hepatitis C Virus Ab Quant 0.05 Index; Hepatitis C Virus Ab Result Negative (Negative)
[2018-10-11] MEDS: INSULIN REGULAR 100 UNIT/ML SUBCUT SCH ×4 (08:05→21:57)
[2018-10-11] MEDS ORDERED: ceFAZolin 1,000 MG in SYRINGE 1 EACH IV ONE (08:14)
[2018-10-11] MEDS: hydrALAZINE 25 MG TABLET PO SCH ×3 (08:29→21:57)
[2018-10-11] MEDS: PANTOPRAZOLE 40 MG TABLET PO SCH (08:29)
[2018-10-11] MEDS: amLODIPine 10 MG TABLET PO SCH (08:29)
[2018-10-11] MEDS ORDERED: SODIUM CHLORIDE 0.9% 1,000 ML IV PRN (09:55)
[2018-10-11] MEDS: SKIN HEALING OINT (AQUAPHOR) 50 GM TUBE TOP SCH (10:55)
[2018-10-11] MEDS ORDERED: LIDOCAINE 1%/EPI INJ 20 ML VIAL ONE (12:00)
[2018-10-11] MEDS ORDERED: HEPARIN 5,000 UNIT/1 ML VIAL ONE (12:00)
[2018-10-11] MEDS ORDERED: BUPIVACAINE 0.5% 50 ML VIAL ONE (12:00)
[2018-10-11] MEDS ORDERED: PROPOFOL 200 MG/20 ML VIAL IV ONE (13:09)
[2018-10-11] MEDS ORDERED: MIDAZOLAM 2 MG/2 ML VIAL ONE (13:10)
[2018-10-11] MEDS ORDERED: MIDAZOLAM 10 MG/2 ML VIAL ONE (13:10)
[2018-10-11] MEDS ORDERED: fentaNYL 100 MCG/2 ML VIAL ONE (13:10)
[2018-10-11] MEDS ORDERED: EPOETIN ALFA 10,000 UNIT/1 ML VIAL IV PRN (14:07)
[2018-10-11] MEDS ORDERED: HEPARIN 10,000 UNIT/10 ML VIAL IV PRN (14:44)
[2018-10-12 05:18] LABS: Basophils # 0.1 10*3/uL (0.0-0.2); Basophils % 0.9 % (0.0-0.8); Eosinophils # 0.2 10*3/uL (0.0-0.87); Eosinophils % 2.8 % (0.00-10.9); Hematocrit 29.4 VOL% (42.0-52.0); Hemoglobin 9.9 GM/DL (14.0-18.0); Immature Granulocytes % 0.4 %; Immature Granulocytes Absolute 0.03 #; Lymphocytes # 1.3 10*3/uL (1.4-4.0); Lymphocytes % 18.3 % (21.2-54.2); Mean Corpuscular HGB Conc 33.7 GM/DL (32-36); Mean Corpuscular Hemoglobin 30 PG (27-34); Mean Corpuscular Volume 89.4 FL (87-102); Mean Platelet Volume 10.2 FL (9.6-12.0); Monocytes # 0.6 10*3/uL (0.11-0.8); Monocytes % 8.8 % (1.7-12.7); Neutrophils # 4.8 10*3/uL (1.4-7.4); Neutrophils % 68.8 % (38.7-73.9); Platelet Count 216 T/CUMM (130-400); Red Blood Count 3.29 MC/CUMM (3.8-5.5); Red Cell Distribution Width 14.5 % (9.3-17.3)
[2018-10-12 05:34] LABS: Calcium 6.5 MG/DL (8.5-10.1); Osmolality,Calculated 305.7 MOS/KG (273-304); Potassium 3.2 MMOL/L (3.5-5.1)
[2018-10-12] MEDS: INSULIN REGULAR 100 UNIT/ML SUBCUT SCH ×4 (07:32→21:39)
[2018-10-12] MEDS: amLODIPine 10 MG TABLET PO SCH (09:06)
[2018-10-12] MEDS: hydrALAZINE 25 MG TABLET PO SCH ×3 (09:06→21:31)
[2018-10-12] MEDS: PANTOPRAZOLE 40 MG TABLET PO SCH (09:06)
[2018-10-12] MEDS: SKIN HEALING OINT (AQUAPHOR) 50 GM TUBE TOP SCH (14:20)
[2018-10-12] MEDS: hydrALAZINE 20 MG/1 ML VIAL IV PRN (16:02)
[2018-10-13] MEDS: hydrALAZINE 20 MG/1 ML VIAL IV PRN (00:01)
[2018-10-13 04:55] LABS: Calcium 6.4 MG/DL (8.5-10.1); Osmolality,Calculated 298.1 MOS/KG (273-304); Potassium 2.9 MMOL/L (3.5-5.1)
[2018-10-13] MEDS ORDERED: POTASSIUM CHLORIDE 20 MEQ TABLET PO PRN (05:49)
[2018-10-13] MEDS: INSULIN REGULAR 100 UNIT/ML SUBCUT SCH ×2 (08:17→12:46)
[2018-10-13] MEDS: hydrALAZINE 25 MG TABLET PO SCH (08:18)
[2018-10-13] MEDS: PANTOPRAZOLE 40 MG TABLET PO SCH (08:18)
[2018-10-13] MEDS: amLODIPine 10 MG TABLET PO SCH (08:18)
[2018-10-13] MEDS ORDERED: POTASSIUM CHLORIDE 20 MEQ TABLET PO SCH (09:00)
[2018-10-13 13:22] VITALS: BP 155/96
[2018-10-13] MEDS: SKIN HEALING OINT (AQUAPHOR) 50 GM TUBE TOP SCH (13:59)
== END 2018-10-13 14:36 | disposition home or self-care (01) | DRG 674 ==
LOC: N.5E 17:44 → SUATTDRO 17:44
PROVIDERS: ADMIT Internal Medicine; ATTEND Hospitalist

== ENCOUNTER 2018-12-18 09:15 | Inpatient (IN) ==
[2018-12-18] MEDS ORDERED: ONDANSETRON 4 MG/2 ML VIAL IV STA (09:36)
[2018-12-18] MEDS ORDERED: hydrALAZINE 20 MG/1 ML VIAL IV STA (09:36)
[2018-12-18 09:59] LABS: Basophils # 0.1 10*3/uL (0.0-0.2); Basophils % 1.1 % (0.0-0.8); Eosinophils # 0.2 10*3/uL (0.0-0.87); Eosinophils % 2.9 % (0.00-10.9); Hematocrit 35.6 VOL% (42.0-52.0); Hemoglobin 11.8 GM/DL (14.0-18.0); Immature Granulocytes % 0.3 %; Immature Granulocytes Absolute 0.02 #; Lymphocytes # 1.8 10*3/uL (1.4-4.0); Lymphocytes % 29.4 % (21.2-54.2); Mean Corpuscular HGB Conc 33.1 GM/DL (32-36); Mean Corpuscular Volume 90.6 FL (87-102); Mean Platelet Volume 9.5 FL (9.6-12.0); Monocytes % 9.9 % (1.7-12.7); Neutrophils % 56.4 % (38.7-73.9); Platelet Count 217 T/CUMM (130-400); Red Blood Count 3.93 MC/CUMM (3.8-5.5); Red Cell Distribution Width 14.5 % (9.3-17.3); White Blood Count 6.3 T/CUMM (4-12)
[2018-12-18 10:06] LABS: INR 0.9; Partial Thromboplastin Time 26.5 SECS (0-40)
[2018-12-18 10:21] LABS: CKMB % 1.6 %
[2018-12-18 10:22] LABS: Troponin I 0.772 NG/ML (0.00-0.045)
[2018-12-18 10:28] LABS: Albumin 3.3 G/DL (3.4-5.0); Bilirubin,Total 0.6 MG/DL (0.2-1.0); Calcium 7.6 MG/DL (8.5-10.1); Osmolality,Calculated 288.1 MOS/KG (273-304); Total Protein 7.2 G/DL (6.4-8.3)
[2018-12-18] MEDS ORDERED: POTASSIUM BICARB EFFERVESCENT 25 MEQ TABLET PO ONE (10:37)
[2018-12-18] MEDS ORDERED: DEXTROSE 50% 25 GM/50 ML VIAL IV PRN (12:19)
[2018-12-18] MEDS ORDERED: ONDANSETRON 4 MG/2 ML VIAL IV PRN (12:19)
[2018-12-18] MEDS: amLODIPine 10 MG TABLET PO SCH (14:00)
[2018-12-18] MEDS: hydrALAZINE 25 MG TABLET PO SCH ×2 (14:47→20:48)
[2018-12-18] MEDS ORDERED: hydrALAZINE 20 MG/1 ML VIAL IV PRN (16:05)
[2018-12-18] MEDS: INSULIN LISPRO 100 UNIT/ML SUBCUT SCH ×2 (16:46→21:29)
[2018-12-18 17:10] LABS: Calcium 7.4 MG/DL (8.5-10.1); Osmolality,Calculated 289.1 MOS/KG (273-304)
[2018-12-18] MEDS: SEVELAMER CARBONATE 800 MG TABLET PO SCH (17:46)
[2018-12-18] MEDS: POTASSIUM CHLORIDE 20 MEQ TABLET PO PRN ×3 (18:14→22:56)
[2018-12-18] MEDS: CALCIUM (CARBONATE) 600 MG TABLET PO SCH (20:48)
[2018-12-19] MEDS: POTASSIUM CHLORIDE 20 MEQ TABLET PO PRN (00:38)
[2018-12-19 04:40] LABS: Basophils % 0.8 % (0.0-0.8); Eosinophils # 0.2 10*3/uL (0.0-0.87); Eosinophils % 4.2 % (0.00-10.9); Hematocrit 31.1 VOL% (42.0-52.0); Hemoglobin 10.2 GM/DL (14.0-18.0); Immature Granulocytes % 0.2 %; Immature Granulocytes Absolute 0.01 #; Lymphocytes # 1.6 10*3/uL (1.4-4.0); Lymphocytes % 30.7 % (21.2-54.2); Mean Corpuscular HGB Conc 32.8 GM/DL (32-36); Mean Platelet Volume 9.7 FL (9.6-12.0); Monocytes % 11.4 % (1.7-12.7); Neutrophils % 52.7 % (38.7-73.9); Platelet Count 203 T/CUMM (130-400); Red Blood Count 3.38 MC/CUMM (3.8-5.5); Red Cell Distribution Width 14.2 % (9.3-17.3); White Blood Count 5.3 T/CUMM (4-12)
[2018-12-19 04:48] LABS: Albumin 2.7 G/DL (3.4-5.0); Bilirubin,Total 1.1 MG/DL (0.2-1.0); Calcium 7.1 MG/DL (8.5-10.1); Risk Ratio 3.69; VLDL CHOLESTEROL 15.6 MG/DL
[2018-12-19] MEDS ORDERED: PANTOPRAZOLE 40 MG TABLET PO SCH (09:00)
[2018-12-19] MEDS: INSULIN LISPRO 100 UNIT/ML SUBCUT SCH ×3 (09:03→18:49)
[2018-12-19] MEDS: SEVELAMER CARBONATE 800 MG TABLET PO SCH ×3 (11:08→18:48)
[2018-12-19] MEDS ORDERED: EPOETIN ALFA 2,000 UNIT/1 ML VIAL IV PRN (12:41)
[2018-12-19] MEDS ORDERED: BUPIVACAINE MPF 0.25% /EPI 30 ML VIAL ONE (12:56)
[2018-12-19] MEDS ORDERED: ceFAZolin 1,000 MG VIAL ONE (12:56)
[2018-12-19] MEDS ORDERED: THROMBIN TOPICAL (RECOMBINANT) 5,000 UNIT VIAL TOP ONE (12:56)
[2018-12-19] MEDS ORDERED: LIDOCAINE 1%/EPI INJ 20 ML VIAL ONE (12:56)
[2018-12-19] MEDS ORDERED: HEPARIN 5,000 UNIT/1 ML VIAL ONE (12:56)
[2018-12-19] MEDS ORDERED: PROPOFOL 200 MG/20 ML VIAL IV ONE (14:09)
[2018-12-19] MEDS ORDERED: MIDAZOLAM 2 MG/2 ML VIAL ONE (14:10)
[2018-12-19] MEDS ORDERED: KETAMINE 500 MG/10 ML VIAL ONE (14:10)
[2018-12-19] MEDS ORDERED: SODIUM CHLORIDE 0.9% 100 ML IV ONE (14:10)
[2018-12-19] MEDS ORDERED: fentaNYL 100 MCG/2 ML VIAL ONE (14:10)
[2018-12-19 14:41] VITALS: BP 139/83
[2018-12-19] MEDS: hydrALAZINE 25 MG TABLET PO SCH ×2 (15:04→18:46)
[2018-12-19] MEDS: CALCIUM (CARBONATE) 600 MG TABLET PO SCH (18:45)
[2018-12-19] MEDS: amLODIPine 10 MG TABLET PO SCH (18:46)
== END 2018-12-19 19:15 | disposition home or self-care (01) | DRG 264 ==
LOC: N.ED 09:15 → N.EDINP 12:19 → N.2E 14:30
PROVIDERS: ADMIT Internal Medicine; ATTEND Internal Medicine